=== PATIENT | female | born 1935 | race Caucasian/White ===

== ENCOUNTER → 2023-06-10 12:56 | Outpatient (REF) | payer MEDICARE, OTHER, SELFPAY | LOC: DHCBC MAIN 12:56 | PROVIDERS: ATTENDING PHYSICIAN Internal Medicine Cardiovascular Disease; FAMILY PHYSICIAN Family Medicine | DX: I47.9 Paroxysmal tachycardia, unspecified (principal); I10 Essential (primary) hypertension; I77.810 Thoracic aortic ectasia | CPT/HCPCS: 93306 ==

== ENCOUNTER → 2023-07-08 10:10 | Outpatient (REF) | payer MEDICARE, OTHER, SELFPAY | LOC: RCS 10:10 | PROVIDERS: ATTENDING PHYSICIAN Internal Medicine Cardiovascular Disease; FAMILY PHYSICIAN Family Medicine | DX: R00.2 Palpitations (principal) | CPT/HCPCS: 93225; 93226 ==

== ENCOUNTER → 2023-08-06 08:48 | Outpatient (REF) | payer MEDICARE, OTHER, SELFPAY ==
[2023-08-06 10:02] LABS: Ionized Calcium 1.13 mMOL/L (1.15-1.33)
[2023-08-06 10:19] LABS: % Basophils 0.3 % (0-2); % Eosinophils 3.4 % (0-6); % Immature Granulocytes 0.6 % (0-0.5); % Lymphocytes 24.1 % (20.5-51.1); % Monocytes 8.1 % (1.7-9.3); % Neutrophils 63.5 % (42.2-75.2); Absolute Eosinophils 0.3 10^3/uL (0-0.7); Absolute Immature Granulocytes 0.1 10^3/uL (0-0.05); Absolute Lymphocytes 1.9 10^3/uL (1.2-3.4); Absolute Monocytes 0.7 10^3/uL (0.1-0.6); Absolute Neutrophils 5.1 10^3/uL (1.4-6.5); Hemoglobin 13.2 g/dL (12.0-16.0); Mean Corpuscular Hgb 32.8 pg (27.0-31.0); Mean Corpuscular Volume 99.5 fL (81.0-99.0); Mean Platelet Volume 10.8 fL (7.4-10.4); Nucleated Red Blood Cells % 0 %; Platelet Count 222 10^3/uL (130-400); Red Blood Cell Count 4.02 10^6/uL (4.20-5.40); Red Cell Dist. Width 12.8 % (11.5-14.5)
[2023-08-06 12:35] LABS: Iron 120 ug/dl (37-170)
[2023-08-06 12:46] LABS: Percent Saturation 35 % (20-50); Total Iron Binding Capacity 338 ug/dl (265-497)
[2023-08-06 12:47] LABS: Creatine Phosphokinase 50 U/L (30-135)
[2023-08-06 13:23] LABS: Ferritin 62.5 ng/ml (11.1-264.0)
[2023-08-06 13:42] LABS: Vitamin B12 310 pg/ml (239-931)
[2023-08-07 09:49] LABS: Intact PTH 26.9 pg/ml (13.6-85.8)
[2023-08-07 11:49] LABS: Aldolase 4.2 U/L (1.2-7.6)
[2023-08-09 02:22] LABS: Albumin 3.61 g/dL (3.75-5.01); Alpha 1 Globulin 0.27 g/dL (0.19-0.46); Alpha 2 Globulin 0.82 g/dL (0.48-1.05); SPEP IFE Reflex IFE Done
== END ==
LOC: REG 08:48
PROVIDERS: ATTENDING PHYSICIAN Internal Medicine Hematology & Oncology; FAMILY PHYSICIAN Family Medicine; REFERRING PHYSICIAN Specialist
DX: R53.1 Weakness (principal); E21.3 Hyperparathyroidism, unspecified; C50.419 Malignant neoplasm of upper-outer quadrant of unspecified female breast; R11.2 Nausea with vomiting, unspecified; D70.9 Neutropenia, unspecified; C7A.00 Malignant carcinoid tumor of unspecified site; Z79.899 Other long term (current) drug therapy; R20.0 Anesthesia of skin
CPT/HCPCS: 36415; 82085; 82330; 82550; 82607; 82728; 82746; 83540; 83550; 83970; 84155; 84165; 85025; 86041

== ENCOUNTER → 2023-09-17 07:59 | Outpatient (REF) | payer MEDICARE, OTHER, SELFPAY ==
[2023-09-17 09:33] LABS: % Basophils 0.2 % (0-2); % Eosinophils 0.5 % (0-6); % Immature Granulocytes 0.8 % (0-0.5); % Lymphocytes 19.3 % (20.5-51.1); % Neutrophils 71.2 % (42.2-75.2); Absolute Eosinophils 0.1 10^3/uL (0-0.7); Absolute Immature Granulocytes 0.1 10^3/uL (0-0.05); Absolute Monocytes 0.8 10^3/uL (0.1-0.6); Absolute Neutrophils 7.3 10^3/uL (1.4-6.5); Hematocrit 37.8 % (37.0-47.0); Hemoglobin 12.7 g/dL (12.0-16.0); Mean Corp Hgb Conc. 33.6 g/dL (33.0-37.0); Mean Corpuscular Volume 95.2 fL (81.0-99.0); Mean Platelet Volume 10.5 fL (7.4-10.4); Nucleated Red Blood Cells % 0 %; Platelet Count 284 10^3/uL (130-400); Red Blood Cell Count 3.97 10^6/uL (4.20-5.40); Red Cell Dist. Width 12.4 % (11.5-14.5); White Blood Cell Count 10.3 10^3/uL (4.8-10.8)
[2023-09-17 10:33] LABS: ALT (SGPT) 20 U/L (0-35); AST (SGOT) 17 U/L (14-36); Albumin 3.7 g/dl (3.5-5.0); Alkaline Phosphatase 68 U/L (38-126); Blood Urea Nitrogen 25 mg/dl (7-17); Calcium 8.7 mg/dl (8.4-10.2); Carbon Dioxide 23 mmol/L (22-30); Chloride 107 mmol/L (98-107); Glucose 97 mg/dl (70-99); Potassium 4.1 mmol/L (3.5-5.1); Sodium 137 mmol/L (135-145); Total Bilirubin 0.6 mg/dl (0.2-1.3); Total CK 39 U/L (30-135); Total Protein 5.8 g/dl (6.3-8.2); eGFR > 60.00
[2023-09-17 10:35] LABS: C-Reactive Protein < 5.00 mg/L (0.0-10.00)
[2023-09-17 10:48] LABS: Erythrocyte Sed Rate 10 mm/hour (0-20)
[2023-09-17 11:05] LABS: TSH Reflex To Free T4 0.92 uIU/ml (0.47-4.68)
[2023-09-18 22:01] LABS: SSA 52 (Ro)(ENA) Ab, IgG 1 AU/mL (0-40); SSA 60 (Ro)(ENA) Ab, IgG 0 AU/mL (0-40); SSB (La)(ENA) Ab, IgG 0 AU/mL (0-40)
[2023-09-19 01:36] LABS: ANA, IgG Reflex to HEp-2 None Detected (None Detected)
[2023-09-19 15:58] LABS: Lyme Antibody Screen, EIA Negative (Negative); Rheumatoid Agglutinin Less Than 10 IU (<10 IU)
== END ==
LOC: REG 07:59
PROVIDERS: ATTENDING PHYSICIAN Family Medicine; FAMILY PHYSICIAN Family Medicine
DX: R53.83 Other fatigue (principal); G47.61 Periodic limb movement disorder; R06.00 Dyspnea, unspecified; E03.9 Hypothyroidism, unspecified; M79.10 Myalgia, unspecified site; M25.50 Pain in unspecified joint
CPT/HCPCS: 36415; 80053; 82550; 84443; 85025; 85652; 86038; 86140; 86235; 86430; 86618

== ENCOUNTER → 2023-10-16 13:03 | Outpatient (REF) | payer MEDICARE, OTHER, SELFPAY | LOC: RAD 13:03 | PROVIDERS: ATTENDING PHYSICIAN Family Medicine | DX: M54.2 Cervicalgia (principal); R20.2 Paresthesia of skin; M79.642 Pain in left hand | CPT/HCPCS: 72040; 73120 ==

== ENCOUNTER → 2023-10-24 13:55 | Outpatient (REF) | payer MEDICARE, OTHER, SELFPAY ==
[2023-10-24 15:45] LABS: Chloride 103 mmol/L (98-107)
[2023-10-24 15:47] LABS: ALT (SGPT) 30 U/L (0-35); AST (SGOT) 28 U/L (14-36); Albumin 3.8 g/dl (3.5-5.0); Alkaline Phosphatase 64 U/L (38-126); Blood Urea Nitrogen 30 mg/dl (7-17); Calcium 9.3 mg/dl (8.4-10.2); Carbon Dioxide 26 mmol/L (22-30); Glucose 116 mg/dl (70-99); Potassium 3.8 mmol/L (3.5-5.1); Sodium 137 mmol/L (135-145); Total Bilirubin 0.4 mg/dl (0.2-1.3); eGFR > 60.00
[2023-10-24 16:11] LABS: % Basophils 0.3 % (0-2); % Eosinophils 1.4 % (0-6); % Immature Granulocytes 0.4 % (0-0.5); % Lymphocytes 26.1 % (20.5-51.1); % Monocytes 8.8 % (1.7-9.3); Absolute Eosinophils 0.1 10^3/uL (0-0.7); Absolute Monocytes 0.7 10^3/uL (0.1-0.6); Absolute Neutrophils 4.9 10^3/uL (1.4-6.5); Hemoglobin 12.3 g/dL (12.0-16.0); Mean Corp Hgb Conc. 33.2 g/dL (33.0-37.0); Mean Corpuscular Hgb 32.2 pg (27.0-31.0); Mean Corpuscular Volume 96.9 fL (81.0-99.0); Mean Platelet Volume 10.6 fL (7.4-10.4); Nucleated Red Blood Cells % 0 %; Platelet Count 229 10^3/uL (130-400); Red Blood Cell Count 3.82 10^6/uL (4.20-5.40); Red Cell Dist. Width 12.6 % (11.5-14.5); White Blood Cell Count 7.8 10^3/uL (4.8-10.8)
== END ==
LOC: REG 13:55
PROVIDERS: ATTENDING PHYSICIAN Family Medicine
DX: R10.31 Right lower quadrant pain (principal); K57.00 Diverticulitis of small intestine with perforation and abscess without bleeding
CPT/HCPCS: 36415; 80053; 85025

== ENCOUNTER → 2023-10-28 11:44 | Outpatient (REF) | payer MEDICARE, OTHER, SELFPAY | LOC: RAD 11:44 | PROVIDERS: ATTENDING PHYSICIAN Family Medicine | DX: R10.31 Right lower quadrant pain (principal); K57.90 Diverticulosis of intestine, part unspecified, without perforation or abscess without bleeding | CPT/HCPCS: 74178; Q9967 ==

== ENCOUNTER → 2023-11-04 08:47 | Outpatient (REF) | payer MEDICARE, OTHER, SELFPAY ==
[2023-11-04 10:52] LABS: HDL Cholesterol 75 mg/dl; LDL Cholesterol, Calculated 101 mg/dl; Total Cholesterol 189 mg/dl (50-199); Triglyceride 66 mg/dl (10-149); Very Low Density Lipoprotein 13 mg/dl (0-30)
== END ==
LOC: REG 08:47
PROVIDERS: ATTENDING PHYSICIAN Family Medicine
DX: N94.89 Other specified conditions associated with female genital organs and menstrual cycle (principal); E78.00 Pure hypercholesterolemia, unspecified; R97.1 Elevated cancer antigen 125 [CA 125]
CPT/HCPCS: 36415; 80061; 86304

== ENCOUNTER → 2023-11-07 14:03 | Outpatient (REF) | payer MEDICARE, OTHER, SELFPAY | LOC: HWRAD 14:03 | PROVIDERS: ATTENDING PHYSICIAN Family Medicine | DX: N94.89 Other specified conditions associated with female genital organs and menstrual cycle (principal) | CPT/HCPCS: 76830; 76856 ==

== ENCOUNTER → 2024-01-13 14:49 | Outpatient (REF) | payer MEDICARE, OTHER, SELFPAY | LOC: WDC 14:49 | PROVIDERS: ATTENDING PHYSICIAN Family Medicine | DX: Z12.31 Encounter for screening mammogram for malignant neoplasm of breast (principal) | CPT/HCPCS: 77063; 77067 ==

== ENCOUNTER → 2024-01-16 08:48 | Outpatient (REF) | payer MEDICARE, OTHER, SELFPAY | LOC: RAD 08:48 | PROVIDERS: ATTENDING PHYSICIAN Family Medicine | DX: Z78.0 Asymptomatic menopausal state (principal) | CPT/HCPCS: 77080 ==

== ENCOUNTER → 2024-04-08 11:02 | Outpatient (REF) | payer MEDICARE, OTHER, SELFPAY | LOC: RAD 11:02 | PROVIDERS: ATTENDING PHYSICIAN Pain Medicine Interventional Pain Medicine; FAMILY PHYSICIAN Family Medicine | DX: Z01.818 Encounter for other preprocedural examination (principal) | CPT/HCPCS: 93005 ==

== ENCOUNTER → 2024-05-22 12:05 | Outpatient (REF) | payer MEDICARE, OTHER, SELFPAY ==
[2024-05-22 12:28] LABS: % Basophils 0.6 % (0-2); % Eosinophils 3.1 % (0-6); % Immature Granulocytes 0.6 % (0-0.5); % Lymphocytes 26.7 % (20.5-51.1); % Monocytes 9.2 % (1.7-9.3); % Neutrophils 59.8 % (42.2-75.2); Absolute Basophils 0.1 10^3/uL (0-0.2); Absolute Eosinophils 0.3 10^3/uL (0-0.7); Absolute Immature Granulocytes 0.1 10^3/uL (0-0.05); Absolute Lymphocytes 2.2 10^3/uL (1.2-3.4); Absolute Monocytes 0.8 10^3/uL (0.1-0.6); Absolute Neutrophils 4.9 10^3/uL (1.4-6.5); Hematocrit 38.3 % (37.0-47.0); Hemoglobin 12.6 g/dL (12.0-16.0); Mean Corp Hgb Conc. 32.9 g/dL (33.0-37.0); Mean Corpuscular Hgb 32.7 pg (27.0-31.0); Mean Corpuscular Volume 99.5 fL (81.0-99.0); Mean Platelet Volume 10.6 fL (7.4-10.4); Nucleated Red Blood Cells % 0 %; Platelet Count 233 10^3/uL (130-400); Red Blood Cell Count 3.85 10^6/uL (4.20-5.40); Red Cell Dist. Width 12.5 % (11.5-14.5); White Blood Cell Count 8.2 10^3/uL (4.8-10.8)
[2024-05-22 12:39] LABS: ALT (SGPT) 21 U/L (0-35); AST (SGOT) 19 U/L (14-36); Albumin 3.9 g/dl (3.5-5.0); Alkaline Phosphatase 67 U/L (38-126); Blood Urea Nitrogen 40 mg/dl (7-17); Calcium 8.9 mg/dl (8.4-10.2); Carbon Dioxide 27 mmol/L (22-30); Chloride 102 mmol/L (98-107); Glucose 88 mg/dl (70-99); HDL Cholesterol 77 mg/dl; Iron 124 ug/dl (37-170); LDL Cholesterol, Calculated 92 mg/dl; Sodium 137 mmol/L (135-145); Total Bilirubin 0.8 mg/dl (0.2-1.3); Total Cholesterol 180 mg/dl (50-199); Triglyceride 58 mg/dl (10-149); Very Low Density Lipoprotein 11 mg/dl (0-30); eGFR > 60.00
[2024-05-22 12:48] LABS: Percent Saturation 38 % (20-50); Total Iron Binding Capacity 325 ug/dl (265-497)
[2024-05-22 13:09] LABS: TSH Reflex To Free T4 0.82 uIU/ml (0.47-4.68)
[2024-05-22 13:14] LABS: Ferritin 50.1 ng/ml (11.1-264.0)
== END ==
LOC: OLABPV 12:05
PROVIDERS: ATTENDING PHYSICIAN Family Medicine
DX: E78.00 Pure hypercholesterolemia, unspecified (principal); I48.91 Unspecified atrial fibrillation; I25.10 Atherosclerotic heart disease of native coronary artery without angina pectoris; R53.1 Weakness; R53.83 Other fatigue; G47.33 Obstructive sleep apnea (adult) (pediatric); G47.61 Periodic limb movement disorder
CPT/HCPCS: 36415; 80053; 80061; 82728; 83540; 83550; 84443; 85025

== ENCOUNTER 2024-06-14 17:35 | Inpatient (IN) | payer MEDICARE, OTHER, SELFPAY ==
[2024-06-14] VITALS (13 sets, daily range): BP systolic 115–160; BP diastolic 72–103; PULSE 84; O2SAT 95
--- NOTE | 2024-06-14 11:13 | ED.GENMED ---
History of Present Illness
General
Chief Complaint: Dizziness
Source: patient and spouse
Exam Limitations: none
Time Seen by Provider: 06/14/24 10:48
Nursing documentation reviewed up to this point in time: agreed with
History of Present Illness
History of Present Illness:
Patient with history of paroxysmal atrial fibrillation on Eliquis, presents to ED secondary to sudden onset of dizziness, described as room sitting sensation, along with nausea and vomiting, upon waking up this morning. Patient reports mild
headache along her right side of the forehead, which has been chronic. Denies fever or chills. Denies blurred vision. Denies difficulty with speech. Denies loss of sensation or weakness. Denies recent illness. Denies recent change in
medications or diet. This morning when her symptoms started, patient was evaluated by nursing staff at her facility, where she was detected to have increased heart rate, with possible recurrent atrial fibrillation. Denies recent travel or surgery.
Past History
Past History
ED Past Medical History: Cancer (Breast cancer), GERD, HTN and Other (Hyperparathyroidism, headaches, dizziness)
ED Past Surgical History: Gynecological (Mastectomy.), Orthopedic and Other (Port placement; parathyroidectomy June 2018)
Social History
Tobacco: Non-smoker
Alcohol: None
Personal:
Living: with family
Employment: Retired
Family History
Family History: Other (Noncontributory)
Review of Systems
Review of Systems
Allergies reviewed?: Yes
All Other Systems: ROS reviewed and negative except as documented in HPI and ROS
Constitutional: Reports no symptoms
Respiratory: Reports no symptoms
Cardiac: Reports palpitations
ABD/GI: Reports nausea and vomiting
Musculoskeletal: Reports no symptoms
Skin: Reports no symptoms
Neurological: Reports dizzy and headache; Denies weakness
Phy Exam
Physical Exam
Physical Exam:
Physical Exam
General: no apparent distress, not acutely ill. afebrile.
Head: nc/at. horizontal nystagmus noted.
Neck: supple. no meningeal signs.
Heart: irregular, no murmur.
Lungs: no acute respiratory distress. clear bilaterally
Abdomen: normal bowel sounds. not tender.
Neuro: alert and oriented x 3. no focal neurological deficits
Skin: no rash
Psychiatric: well kept. interactive and cooperative
Extremities: no edema. no calf tenderness.
Course
Orders/Labs/Results
Orders:
Orders
06/14/24 Breakfast
Clear Liquid
At Your Request: Full Participation
Does patient need a safe tray?: No
06/14/24 10:39
Electrocardiogram (*1) Urgent
Reason for Study: Atrial Fibrillation
EKG- Treatment ONCE
06/14/24 11:12
0.9% Sodium Chloride 250 ml [Nss] 250 ml IV BOLUS
Diltiazem HCl [Cardizem] 10 mg IV NOW STA
06/14/24 11:19
Comprehensive Metabolic Panel Urgent
Magnesium Urgent
06/14/24 11:20
Complete Blood Count/No Diff Urgent
TSH Urgent
06/14/24 12:02
Electrocardiogram (*1) Urgent
Reason for Study: Atrial Fibrillation
EKG- Treatment ONCE
06/14/24 13:00
Diltiazem 125 mg/125 ml Nss [Cardizem] 125 mg in 125 ml IV PER PROTOCOL
Initial dose in mg/hr, then titrate:: 5
Titrate to keep:: Heart rate 80-100 bpm
Titrate by mg/hr:: 5 mg/hr
Frequency of titrations (minutes):: 15
Maximum dose in mg/hr:: 15
06/14/24 13:35
Physical Therapy Consult [Pt Eval And Treat] Urgent
Activity Level: Ambulate
06/14/24 14:36
Meclizine [Antivert] 25 mg PO NOW STA
06/14/24 14:51
Ondansetron Injectable [Zofran] 4 mg .ROUTE .STK-MED ONE
06/14/24 14:52
Ondansetron Injectable [Zofran] 4 mg IV NOW STA
06/14/24 15:36
Prochlorperazine [Compazine] 10 mg IV NOW STA
06/14/24 15:53
diazePAM [Valium Injection] 2 mg IV NOW STA
06/14/24 16:00
diazePAM [Valium Injection] 2 mg IV NOW STA
06/14/24 16:10
Admit/Transfer Patient As Directed
Co-Sign Provider:
Level of Care: Inpatient admission
Assign to:: Telemetry
Physician / Group: Catie
Diagnosis: BPPV, Afib
Reason for Telemetry: Arrhythmia
Date to Stop Telemetry: 06/17/24
Time to Stop Telemetry: 11:00
Reason for Hospitalization: vertigo
Expected length of stay greater than two midnights?: Yes
ELOS- Estimated Length of Stay in days: 3
I certify the patient meets the requirements for IP care: Yes
06/14/24 16:11
PRN Pain Medication Management As Directed
May give lesser potent ordered pain med per pt: Yes
preference::
Protocol:: Medication orders for pain may be administered in a
manner that supports deferring to patient preference
when the pt is:
- Requesting an ordered lesser potent pain medication.
Least to most potent pain medications are defined
as: acetaminophen < NSAID < tramadol < opioids
(morphine, oxycodone, hydromorphone).
- Requesting a lesser dose of the same medication IF
ORDERED.
- Requesting a less intrusive route of administration
if both routes are prescribed by the provider (PO <
IV).
06/14/24 16:14
Code Status As Directed
Resuscitation Status: Full Code
06/14/24 16:35
Potassium Chloride [KCl] 20 meq 0.9% Sodium Chloride 150 ml [Nss] 150 ml IV NOW
06/14/24 17:09
Verapamil Extended Release [Calan Extended Release] 180 mg PO NOW STA
06/14/24 17:53
Acetaminophen [Tylenol] 650 mg PO Q4HPRN PRN
Ondansetron Injectable [Zofran] 4 mg IV Q6HPRN PRN
06/14/24 17:53
CARDIOLOGY CONSULT Routine
Consulting Provider: Mónica Medrano
Was physician already notified: Yes
Activity As Directed
Activity Level: Out of Bed- Chair
Advance Diet as Tolerated As Directed
Goal Diet: Sodium, 2 Gram
Sequential Compression Device [Pneumatic Compression Sleeves] As Directed
Type: Knee high
Vital Signs As Directed
Frequency: Per unit guidelines
Ot Eval And Treat Routine
Pt Eval And Treat Routine
Activity Level: As Tolerated
DX Deep Vein Thrombosis Video Routine
06/14/24 18:00
Losartan [Cozaar] 50 mg PO QPM
Ropinirole [Requip] 0.25 mg PO DAILYPRN PRN
06/14/24 20:00
Apixaban [Eliquis] 5 mg PO BID
Famotidine [Pepcid] 40 mg PO BID
06/14/24 22:00
Meclizine [Antivert] 25 mg PO Q8HPRN PRN
Ropinirole [Requip] 0.5 mg PO HS
diazePAM [Valium Injection] 2 mg IV Q6HPRN PRN
06/15/24 Breakfast
NPO
Allow oral meds: Yes
Allow clear liquids: 4hrs prior to procedure
Comment: may have unrestricted clear liquid up to 4 hrs prior to scheduled procedure
Basic Metabolic Panel IN AM
Complete Blood Count/No Diff IN AM
Levothyroxine [Synthroid] 88 mcg PO DAILY@0600
06/15/24 08:00
Bupropion(12Hr)Sustain Release [WELLBUTRIN SR (12 hour sustained release)] 150 mg PO DAILY
Gabapentin [Neurontin] 100 mg PO DAILY
Verapamil Extended Release [Calan Extended Release] 180 mg PO BID
magnesium oxide 200 mg PO DAILY
06/17/24 11:00
DC Protocol for Telemetry ONCE
Abnormal Lab Results
06/14/24 06/14/24
11:19 11:20
RBC 3.84 L 10^6/uL
(4.20-5.40)
MCH 32.8 H pg
(27.0-31.0)
Chloride 108 H mmol/L
(98-107)
BUN 24 H mg/dl
(7-17)
Glucose 117 H mg/dl
(70-99)
Total Protein 6.1 L g/dl
(6.3-8.2)
06/14/24 11:20
06/14/24 11:19
Vital Signs
Initial and Last Documented VS:
Initial Vital Signs
Temp Pulse Resp BP Pulse Ox
97.8 F 64 16 121/82 98
06/14/24 10:27 06/14/24 10:27 06/14/24 10:27 06/14/24 10:27 06/14/24 10:27
Last Documented Vital Signs
Temp Pulse Resp BP Pulse Ox
98.2 F 102 16 160/83 96
06/14/24 18:06 06/14/24 18:12 06/14/24 18:06 06/14/24 18:12 06/14/24 18:06
MDM/Problems Addressed
MDM/Problems Addressed:
Patient evaluated by physical therapy -symptoms consistent with likely vertigo. However, as patient remains quite symptomatic, patient will be admitted for further evaluation and treatment. In addition, patient is presenting with atrial
fibrillation, and is currently on diltiazem infusion. Perhaps intermittent episodes of atrial fibrillation may be reason for her 'fatigue' over the past 1 year. As such, patient may benefit also from cardiology consultation, for potential
cardioversion as inpatient.
*Critical Care Note
Total Time (30-74mins, 75-104mins- exclusive of procedures): Not Applicable
ED Attending Note
-
Portions of this chart may have been created with voice recognition software.� Occasional wrong word or��sound alike� substitutions may have occurred due to the inherent limitations of voice recognition software.
Discharge Plan
Departure
Patient Disposition: Admit
Date of Disposition: 06/14/24
Time of Disposition: 15:12
Admit to: Telemetry
Presentation/result/management discussed w/ accepting MD/DO: Hospitalist
Discharge Problem:
Vertigo, Atrial fibrillation
Interventions
Interventions:
*Risk Screen - Suicide Last Done: 06/14/24 10:37
*General Assessment Last Done: 06/14/24 10:37
*Neglect/Abuse Screening Last Done: 06/14/24 10:37
*ED- Fall Risk Assessment Last Done: 06/14/24 11:20
*ED COVID-19 Vaccine History Last Done: 06/14/24 11:20
*Nursing Disposition Last Done: 06/14/24 17:54
ED- Neurological Assessment Last Done: 06/14/24 11:22
ED- Cardiac Assessment Last Done: 06/14/24 11:22
ED Swallowing Screen Last Done: 06/14/24 11:22
Discharge Date and Time
Discharge Date/Time: 06/14/24 17:55
[2024-06-14] MEDS: NSS 250 IV (11:24)
[2024-06-14] MEDS: CARDIZEM 10 MG IV (11:26)
[2024-06-14 11:34] LABS: Hematocrit 37.7 % (37.0-47.0); Hemoglobin 12.6 g/dL (12.0-16.0); Mean Corp Hgb Conc. 33.4 g/dL (33.0-37.0); Mean Corpuscular Hgb 32.8 pg (27.0-31.0); Mean Corpuscular Volume 98.2 fL (81.0-99.0); Mean Platelet Volume 10.2 fL (7.4-10.4); Platelet Count 221 10^3/uL (130-400); Red Blood Cell Count 3.84 10^6/uL (4.20-5.40); Red Cell Dist. Width 12.3 % (11.5-14.5); White Blood Cell Count 7.6 10^3/uL (4.8-10.8)
[2024-06-14 11:54] LABS: ALT (SGPT) 24 U/L (0-35); AST (SGOT) 22 U/L (14-36); Alkaline Phosphatase 64 U/L (38-126); Blood Urea Nitrogen 24 mg/dl (7-17); Calcium 9.1 mg/dl (8.4-10.2); Carbon Dioxide 25 mmol/L (22-30); Chloride 108 mmol/L (98-107); Glucose 117 mg/dl (70-99); Potassium 3.8 mmol/L (3.5-5.1); Sodium 140 mmol/L (135-145); Total Bilirubin 0.6 mg/dl (0.2-1.3); Total Protein 6.1 g/dl (6.3-8.2); eGFR > 60.00
[2024-06-14 12:27] LABS: TSH 1.89 uIU/ml (0.47-4.68)
[2024-06-14] MEDS: CARDIZEM 125 IV (13:08)
[2024-06-14] MEDS: ANTIVERT 25 MG PO (14:50)
[2024-06-14] MEDS: ZOFRAN 4 MG IV (14:52)
--- NOTE | 2024-06-14 15:37 | HPS.HSE ---
Family Physician
-
Family Physician: Sonal Grimm MD
Chief Complaint
-
Dizziness and Vomiting
History of Present Illness
Patient is an 88 y/o female past medical history of A-Fib, Hypertension, Hyperlipidemia, Hypothyroidism and Restless Leg Syndrome who presents dizziness. Patient reports this morning she awoke feeling very dizzy which she describes as a spinning
sensation. She reports associated nausea, and vomiting. She reports a similar episode about 2 months ago which was not as severe and resolved fairly quickly. Due the severity of the symptoms she came to the ER where she was also found to be in
atrial fibrillation. Patient has a prior history of atrial fibrillation, but note episodes are usually very short, and she is not aware of any episode that have last this long. She denies any fevers, sweats or chills.
Medical History
Past Medical History
Past Medical History: Reports Other
Additional Past Medical History:
Paroxysmal Atrial Fibrillation
SVT / V-Tach s/p Ablation
Essential Hypertension
Hypothyroidism
Anxiety
Restless Leg Syndrome
GERD
Osteoarthritis
Breast Cancer
Past Surgical History: Reports Other
Additional Past Surgical History:
Right Shoulder Arthroscopy
Left Carpal Tunnel
Bilateral Knee Replacements
Parathyroid Surgery
Right Breast Lumpectomy
Right Inguinal Hernia Repair
Social History
Tobacco: Former Smoker (Quit over 40 years ago)
Living: Other ([facility])
Family History
Family History: Not pertinent
Allergies / Home Medications
Allergies reflects when Allergies were last updated in [facility].
Home Medications with original date entered in [facility]
Allergy/Medication List:
Allergies
Allergy/AdvReac Type Severity Reaction Status Date / Time
cefazolin Allergy Hives Verified 12/19/22 11:20
levofloxacin [From Levaquin] Allergy pain in Verified 12/19/22 11:20
all my
joints and
body
metoprolol Allergy Anxiety Verified 12/19/22 11:20
Penicillins Allergy Pharmacy Verified 12/19/22 11:20
to Review
prednisone [Prednisone] Allergy ANXIETY Verified 12/19/22 11:20
Anesthesia S/I-40 Allergy Unknown Uncoded 06/14/24 10:26
Home Medications
coenzyme Q10 100 mg capsule (CoQ-10) 100 mg PO DAILY Supplement 03/05/14
calcium 600 mg (as carbonate)-vit D3 20 mcg (800 unit) chewable tablet (Caltrate plus D) 1 tab PO DAILY Supplement 09/06/20
bupropion HCl 150 mg tablet,12 hr sustained-release (Wellbutrin SR) 150 mg PO DAILY 04/17/21
acetaminophen 500 mg tablet 1,000 mg PO DAILYPRN PRN mild pain 06/14/24
apixaban 5 mg tablet (Eliquis) 5 mg PO BID 06/14/24
ascorbic acid (vitamin C) 500 mg tablet (Vitamin C) 500 mg PO DAILY 06/14/24
cholecalciferol (vitamin D3) 50 mcg (2,000 unit) tablet (Vitamin D3) 50 mcg PO DAILY 06/14/24
famotidine 20 mg tablet (Pepcid AC) 40 mg PO BID 06/14/24
gabapentin 100 mg capsule 100 mg PO DAILY 06/14/24
levothyroxine 88 mcg tablet 88 mcg PO DAILY 06/14/24
losartan 50 mg tablet 50 mg PO QPM 06/14/24
magnesium oxide 200 mg PO DAILY 06/14/24
omega 1-uce-sid-fish oil 1,000 mg (120 mg-180 mg) capsule (Fish Oil) 1 cap PO DAILY 06/14/24
polyethylene glycol 3350 17 gram oral powder packet 17 g PO DAILY 06/14/24
polyvinyl alcohol 1.4 % eye drops (Artificial Tears (polyvinyl alcohol)) 1 drp ophthalmic (eye) DAILYPRN PRN dry eyes 06/14/24
psyllium 1 packet PO DAILY 06/14/24
ropinirole 0.5 mg tablet 0.75 mg PO HSPRN PRN insomnia 06/14/24
therapeutic multivitamin 1 tab PO DAILY 06/14/24
tramadol 50 mg tablet 50 mg PO DAILYPRN PRN moderate pain 06/14/24
verapamil 180 mg tablet,extended release 180 mg PO BID 06/14/24
Review of Systems
-
A 12 point ROS was completed and negative except as noted: Yes
Constitutional: Denies Fever
Respiratory: Denies Cough or Trouble Breathing
Cardiac: Denies Chest Pain or Palpitations
Physical Exam
Vital Signs
Vital Signs
Temp Pulse Resp BP Pulse Ox
97.8 F 90 16 133/84 94
06/14/24 10:27 06/14/24 14:45 06/14/24 14:45 06/14/24 14:13 06/14/24 14:45
Physical Exam
General: Well Developed, Well Nourished, Conversant and Other (Mild distress due to intermittent waves of nausea)
HEENT: Anicteric, Moist mucous membranes, PERRLA and Other (Horizontal Nysagmus)
Respiratory: Clear and Non Labored Respirations
Cardiac: S1/S2 and Irregular Rhythm; No Tachycardia
GI: Soft and Non Tender
Rectal: Deferred by Provider
Musculoskeletal: No Clubbing and No Cyanosis
Skin: Warm and Dry
Neuro: Awake, Alert, Oriented and Nonfocal/grossly intact
Psych: Calm
Laboratory Results
-
06/14/24 11:20
06/14/24 11:19
Laboratory Results
Total Bilirubin 0.6 mg/dl (0.2-1.3) 06/14/24 11:19
AST 22 U/L (14-36) 06/14/24 11:19
ALT 24 U/L (0-35) 06/14/24 11:19
Alkaline Phosphatase 64 U/L (38-126) 06/14/24 11:19
Data Reviewed
-
Lab Data: Labs Reviewed by me
Impression/Plan
-
Vertigo, likely BPPV
-Patient with positive Harry-Hallpike on the right
-Continue PT/OT for vestibular therapy
-Patient still with significant symptoms despite meclizine given in ED - Will give dose of Valium now
-Continue meclizine prn moderate/severe symptoms - Continue Valium for intractable vertigo
Paroxysmal Atrial Fibrillation
-Patient started on diltiazem drip in ED but rate is now controlled - Will give her usual dose of verapamil now and plan to stop diltiazem drip
-Continue verapamil
-Continue Eliquis
-Consult Cardiology
-NPO after midnight for possible cardioversion if patient remains in a-fib
Essential Hypertension
-Continue Cozaar with hold parameters
Hypothyroidism
-Continue Levothyroxine
Anxiety
-Continue Wellbutrin
Restless Leg Syndrome
-Continue Requip
GERD
-Continue Pepcid
Hx Breast Cancer s/p Right Lumpectomy
DVT proph: Eliquis
Code Status: Full Code
[2024-06-14] MEDS: COMPAZINE 10 MG IV (15:40)
[2024-06-14] MEDS: VALIUM INJECTION 2 MG IV (16:21)
--- NOTE | 2024-06-14 16:29 | W.PN.UPDATE ---
Update Note
Progress Note Update
This is an addendum to H&P written by MONICA Bolden
I saw and examined the patient.
The MAIL HANDLER ASSISTANT's note was reviewed and I agree with the note.
Comment:
Ms. Nimo Dubose is a 88 yo woman with hx atrial fibrillation on Eliquis, breast CA, GERD, HTN presents to the ER with sudden onset of dizziness, nausea and vomiting upon waking this morning. She was found to have elevated heart rate by
nursing staff this morning.
Triage VS: T 97.8, P 64, RR 16, BP 121/82, SpO2 98%
On exam patient is somnolent, THU, EOMI, mild nystagmus. no focal neurological deficits. CV: irregular rhythm, lungs clear. No LE swelling.
LABS: WBC 7.6, Hg 12.6, PLT 221, Na 140, K+ 3.8, Cl 108, Mag 2.0, Glucose 117, T. Bili 0.6, AST 22, ALT 24, Alk Phos 64
TSH 1.89
EKG: afib @ 100
BPPV
-seen by PT with positive Harry-Hallpike
-s/p Meclizine, Compazine and Valium in the ER
-admit to telemetry
-continue Vestibular PT and symptomatic control
Paroxysmal Atrial Fibrillation
-started on an IV Diltiazem gtt in the ER, down to 5
-can resume home Verapamil and stop Diltiazem gtt
-awaiting med rec
-Cardiology consulted
Remainder of plan per MAIL HANDLER ASSISTANT note
[2024-06-14] MEDS: CALAN EXTENDED RELEASE 180 MG PO (18:12)
--- NOTE | 2024-06-14 19:30 | PTCARENOTE ---
pt arrived to unit at 1806 via stretcher from ED, at the bedside. Cardizem gtt running. stat Cardizem ordered for 1700 not given. gtt stopped and PO given, see MAY. BP elevated, other VSS. pt pulled over to bed. Purwick removed pt is
continent x2. pt ambulated from bed to bathroom with an assist x1. pt diet ordered, received dinner. afib on tele #4. pt and updated at the bedside about plan of care by this nurse. assessment completed by this nurse. no signs of skin
breakdown. 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
[2024-06-14] MEDS: COZAAR 50 MG PO (20:12)
[2024-06-14] MEDS: PEPCID 20 MG PO (20:14)
[2024-06-14] MEDS: ELIQUIS 5 MG PO (20:14)
[2024-06-14] MEDS: KCL 160 MEQ IV (21:36)
[2024-06-14] MEDS: REQUIP 0.5 MG PO (21:37)
[2024-06-15] VITALS (8 sets, daily range): BP systolic 111–157; BP diastolic 61–93; PULSE 86–95; O2SAT 95
--- NOTE | 2024-06-15 02:45 | PTCARENOTE ---
Patient educated by this RN multiple times about the importance of utilizing call nagel before ambulating due to complaints of dizziness. Patient continuing to get out of bed without hitting call light. Bed alarm placed. Patient also educated on
importance of wearing cardiac monitor technician. Patient continuing to take leads off. This RN continues to reinforce education and put leads back on. Care ongoing.
[2024-06-15 04:45] LABS: Urine Albumin Negative (Neg - Trace); Urine Bilirubin Negative (Negative); Urine Character Clear (Clear); Urine Color Yellow; Urine Glucose Negative (Negative); Urine Ketone Negative (Negative); Urine Leukocyte Negative (Negative); Urine Nitrite Negative (Negative); Urine Occult Blood Negative (Negative); Urine Specific Gravity 1.005 (<1.030); Urine Urobilinogen Negative (Neg - 1+)
[2024-06-15] MEDS: SYNTHROID 88 MCG PO (05:25)
[2024-06-15 06:55] LABS: Hematocrit 38.1 % (37.0-47.0); Hemoglobin 12.6 g/dL (12.0-16.0); Mean Corp Hgb Conc. 33.1 g/dL (33.0-37.0); Mean Corpuscular Volume 99.7 fL (81.0-99.0); Mean Platelet Volume 9.9 fL (7.4-10.4); Platelet Count 218 10^3/uL (130-400); Red Blood Cell Count 3.82 10^6/uL (4.20-5.40); Red Cell Dist. Width 12.2 % (11.5-14.5); White Blood Cell Count 7.4 10^3/uL (4.8-10.8)
[2024-06-15 07:21] LABS: Blood Urea Nitrogen 15 mg/dl (7-17); Calcium 9.3 mg/dl (8.4-10.2); Carbon Dioxide 25 mmol/L (22-30); Chloride 110 mmol/L (98-107); Estimated Creatinine Clearance 54 ml/min; Glucose 101 mg/dl (70-99); Potassium 4.1 mmol/L (3.5-5.1); Sodium 142 mmol/L (135-145); eGFR > 60.00
[2024-06-15] MEDS: CALAN EXTENDED RELEASE 180 MG PO ×2 (07:37→20:16)
[2024-06-15] MEDS: ELIQUIS 5 MG PO ×2 (07:37→20:16)
[2024-06-15] MEDS: NEURONTIN 100 MG PO (07:37)
[2024-06-15] MEDS: WELLBUTRIN SR (12 hour sustained release) 150 MG PO (07:37)
[2024-06-15] MEDS: MAG-TAB SR 84 MG PO (07:37)
[2024-06-15] MEDS: PEPCID 20 MG PO ×2 (07:37→20:17)
--- NOTE | 2024-06-15 09:23 | CON.CAR ---
Addendum entered and electronically signed by Wayne Munoz MD 06/15/24 14:53:
88 yo female with PMH of paroxysmal A fib on eliquis was admitted with dizziness and A fib with RVR. There seems to be a component of vertigo, and she is being treated for this as well. She is now back in sinus after a diltiazem drip. She feels
weak overall. Exam with RRR, II/ systolic murmur at RUSB, no edema. Tele: SR 80s.
Paroxysmal A fib. Now back in sinus, and on home regimen of verapamil 180mg bid. We discussed options for A fib. She did not tolerate metoprolol in the past. She has taken propranolol for anxiety. We add propranolol 10mg bid.
Check echo.
Vertigo: per primary team.
Original Note:
Consultation
Consultation Request
Date/Time Consultation Requested: 06/14/24 138
Date/Time Consultation Performed: 06/15/24 79
Requesting Provider: Nancy ANDERSON
Performing Provider: Marimar CROWDER for Dr. Munoz
Reason for Consultation: AFIB
Medical History
-
Chief Complaint: dizziness
History of Present Illness:
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
breast cancer/chemo who is here for evaluation of dizziness (felt like she was moving) with associated nausea and vomiting. In ER, seen to be in AFIB with RVR and briefly was on dilt drip, but has been back in SR. She is still feeling dizzy. She is
diagnosed with vertigo and treated with meclizine, Compazine, and Valium. Vestibular therapy planned. She is OOB to chair and in no distress at the time of my assessment.
Past Medical History
Past Medical History: Arrhythmias, CVA, HTN and Other (as above)
Social History
Personal:
Family History
Family History: Reviewed & Not Pertinent
Allergies / Home Medications
Allergy/AdvReac Type Severity Reaction Status Date / Time
cefazolin Allergy Hives Verified 12/19/22 11:20
levofloxacin [From Levaquin] Allergy pain in Verified 12/19/22 11:20
all my
joints and
body
metoprolol Allergy Anxiety Verified 12/19/22 11:20
Penicillins Allergy Pharmacy Verified 12/19/22 11:20
to Review
prednisone [Prednisone] Allergy ANXIETY Verified 12/19/22 11:20
Anesthesia S/I-40 Allergy Unknown Uncoded 06/14/24 10:26
�Medication �Instructions �Recorded �Confirmed �Type
coenzyme Q10 100 mg capsule 100 mg PO DAILY Supplement 03/05/14 06/14/24 History
(CoQ-10)
calcium 600 mg (as carbonate)-vit 1 tab PO DAILY Supplement 09/06/20 06/14/24 History
D3 20 mcg (800 unit) chewable
tablet (Caltrate plus D)
bupropion HCl 150 mg tablet,12 hr 150 mg PO DAILY 04/17/21 06/14/24 History
sustained-release (Wellbutrin SR)
acetaminophen 500 mg tablet 1,000 mg PO DAILYPRN PRN mild pain 06/14/24 06/14/24 History
apixaban 5 mg tablet (Eliquis) 5 mg PO BID 06/14/24 06/14/24 History
ascorbic acid (vitamin C) 500 mg 500 mg PO DAILY 06/14/24 06/14/24 History
tablet (Vitamin C)
cholecalciferol (vitamin D3) 50 50 mcg PO DAILY 06/14/24 06/14/24 History
mcg (2,000 unit) tablet (Vitamin
D3)
famotidine 20 mg tablet (Pepcid AC) 40 mg PO BID 06/14/24 06/14/24 History
gabapentin 100 mg capsule 100 mg PO DAILY 06/14/24 06/14/24 History
levothyroxine 88 mcg tablet 88 mcg PO DAILY 06/14/24 06/14/24 History
losartan 50 mg tablet 50 mg PO QPM 06/14/24 06/14/24 History
magnesium oxide 200 mg PO DAILY 06/14/24 06/14/24 History
omega 3-hkc-zhn-fish oil 1,000 mg 1 cap PO DAILY 06/14/24 06/14/24 History
(120 mg-180 mg) capsule (Fish Oil)
polyethylene glycol 3350 17 gram 17 g PO DAILY 06/14/24 06/14/24 History
oral powder packet
polyvinyl alcohol 1.4 % eye drops 1 drp ophthalmic (eye) DAILYPRN 06/14/24 06/14/24 History
(Artificial Tears (polyvinyl PRN dry eyes
alcohol))
psyllium 1 packet PO DAILY 06/14/24 06/14/24 History
ropinirole 0.5 mg tablet 0.75 mg PO HSPRN PRN insomnia 06/14/24 06/14/24 History
therapeutic multivitamin 1 tab PO DAILY 06/14/24 06/14/24 History
tramadol 50 mg tablet 50 mg PO DAILYPRN PRN moderate pain 06/14/24 06/14/24 History
verapamil 180 mg tablet,extended 180 mg PO BID 06/14/24 06/14/24 History
release
Review of Systems
-
History Source: Patient
All other systems: Negative unless noted
Abdomen/GI: Nausea and Vomiting
Neurological: Dizzy
Physical Exam
Vital Signs
Temp Pulse Resp BP Pulse Ox
97.8 F 90 16 157/82 97
06/15/24 07:41 06/15/24 07:41 06/15/24 07:41 06/15/24 07:41 06/15/24 07:41
Lab Results
06/15/24 06:39
06/15/24 06:39
Physical Exam
General: Well Developed, Well Nourished and No Apparent Distress
HEENT: Normocephalic and Anicteric
Respiratory: Clear and Non Labored Respirations
Cardiac: Regular Rhythm
Skin: Warm and Dry
Neuro: AO x 3
Psych: Calm
Impression / Plan
-
Dizziness/N/V, vertigo:
-on meds and getting therapy
-management per primary team
PAF:
-now in SR
-continue verapamil. She has taken low dose propranolol before for anxiety PRN. We will add it back scheduled dosing for her breakthrough Afib with RVR.
-continue Eliquis for OAC
-update echo
HTN:
-continue BB and monitor with addition of BB
Hx SVT/VT:
-stable and dates back to 1995
-continue CCB
Data Reviewed
-
EKG: Tracing Personally Visualized and interpreted (AFIB 89 BPM)
Medical Tests (Nuc Med, Echo etc): Report Reviewed by me (Echo 06/10/23: 1. Mild LVH with EF 60-65% 2. Bi-atrial enlargement 3. MAC/mild MR 4. Aortic sclerosis without stenosis 5. Mildly dilated aortic root (42mm))
Labs: Labs Reviewed by me
--- NOTE | 2024-06-15 10:30 | CM ---
Addendum entered by Sneha Balderrama 06/15/24 12:22:
PT/OT rec SNF
Options reviewed - prefer [facility] - referral placed in [facility]
no pre-auth needed
PLAN: [facility]
Original Note:
Patient seen at bedside with
IA completed
Lives with in 1 story home, 1 step to ener
PLOF: Independent, no device
DME: Rollator, electric scooter, walker
Has had [facility] in past, denies rehab
PT/OT to eval
PCP: Sonal Grimm
Pharmacy: [facility], [place]
PLAN: Await PT/OT eval, continue to follow for any needs
--- NOTE | 2024-06-15 10:47 | W.PN.HOSP.TC ---
Today's Communication/Plan
-
MRI brain w/wo contrast
continue prn supportive care for vertigo
Echo
monitor tele
ongoing PT/OT
Assessment / Plan
Assessment / Plan
Assessment:
BPPV
- ER eval with PT revealed + Harry-Hallpike
- continue prn Meclizine, Compazine and Valium
- orthostatics negative
- check MRI brain
Chronic shuffling gait
- check MRI
- OP Neurology ongoing follow up with established Neurologist Dr. Brown
Paroxysmal Atrial Fibrillation
- s/p IV Cardizem drip
- now back on Verapamil and low dose Propranolol started
- continue Eliquis
- check Echo
- Cards consulted
Essential Hypertension
- Continue Cozaar with hold parameters
Hypothyroidism
- Continue Levothyroxine
Anxiety
- Continue Wellbutrin
Restless Leg Syndrome
- Continue Requip
GERD
- Continue Pepcid
Hx Breast Cancer s/p Right Lumpectomy
DVT ppx: Eliquis
Code: Full
Anticipated Discharge: > 48 hours
Subjective/Interval History
-
Date of Service: June 15, 2024
less dizziness, no headache, vision changes
Objective Data
-
Labs:
Laboratory Results
06/15/24
06:39
WBC 7.4
Hgb 12.6
Hct 38.1
Plt Count 218
Sodium 142
Potassium 4.1
Chloride 110 H
Carbon Dioxide 25
BUN 15
Creatinine 0.7
Glucose 101 H
Calcium 9.3
Vital Signs:
Vital Signs
Temp Pulse Resp BP Pulse Ox
97.8 F 90 16 157/82 97
06/15/24 07:41 06/15/24 07:41 06/15/24 07:41 06/15/24 07:41 06/15/24 07:41
Physical Exam
-
General: No Apparent Distress
HEENT: Normocephalic and Atraumatic
Respiratory: Negative Wheezes
Cardiac: Regular Rhythm and S1/S2
GI: Soft and Nontender
Genito-urinary: No Costovertebral Tender
Neuro: AO x 3
Psych: Calm
Data Reviewed
-
Total Time Spent with Patient (in minutes): 42
Labs: Labs Reviewed by me
[2024-06-15] MEDS: INDERAL 10 MG PO ×2 (12:01→20:17)
[2024-06-15] MEDS: COZAAR 50 MG PO (17:17)
[2024-06-15] MEDS: REQUIP 0.5 MG PO (21:11)
--- NOTE | 2024-06-15 22:14 | W.PN.UPDATE ---
Update Note
Progress Note Update
RN reports patient agitated, getting aggressive with staff, RN reports patient was with minimal confusion and agitation last night as well, and calm during day with at bedside. Patient was on phone with the , then started getting out
of bed constantly demanding staff to let her go and not to keep her here against her will.
Patient seen and evaluated, patient resting in bed at present, Ox2 name and , voiding okay, denies any pain, trying to call as she thinks he may be mad at her for yelling at him before. Helped patient make the call, since he didn't pick
assured patient that is sleeping therefore she decided to rest now. will order melatonin.
--- NOTE | 2024-06-15 22:35 | PTCARENOTE ---
Patient getting agitated and constantly setting off bed alarm. Patient wandering around unit stating that she was looking for her and that she was being held against her will in the hospital. Patient then began getting verbally aggressive
with staff. VEL Sheridan messaged. Medication orders placed. Refer to MAR. Plan of care ongoing.
[2024-06-15] MEDS: MELATONIN 5 MG PO (22:41)
[2024-06-16] MEDS: SYNTHROID 88 MCG PO (06:17)
[2024-06-16 06:22] VITALS: BP 144/79
[2024-06-16 06:59] LABS: Hematocrit 38.3 % (37.0-47.0); Hemoglobin 12.9 g/dL (12.0-16.0); Mean Corp Hgb Conc. 33.7 g/dL (33.0-37.0); Mean Corpuscular Hgb 32.9 pg (27.0-31.0); Mean Corpuscular Volume 97.7 fL (81.0-99.0); Platelet Count 231 10^3/uL (130-400); Red Blood Cell Count 3.92 10^6/uL (4.20-5.40); Red Cell Dist. Width 12.3 % (11.5-14.5); White Blood Cell Count 7.4 10^3/uL (4.8-10.8)
[2024-06-16 07:24] VITALS: BP 156/89
[2024-06-16] MEDS: CALAN EXTENDED RELEASE 180 MG PO ×2 (07:33→19:31)
[2024-06-16] MEDS: NEURONTIN 100 MG PO (07:33)
[2024-06-16] MEDS: WELLBUTRIN SR (12 hour sustained release) 150 MG PO (07:33)
[2024-06-16] MEDS: PEPCID 20 MG PO ×2 (07:33→19:30)
[2024-06-16] MEDS: INDERAL 10 MG PO ×2 (07:34→19:32)
[2024-06-16] MEDS: ELIQUIS 5 MG PO ×2 (07:34→19:30)
[2024-06-16] MEDS: MAG-TAB SR 84 MG PO (07:34)
[2024-06-16 08:07] LABS: Blood Urea Nitrogen 26 mg/dl (7-17); Carbon Dioxide 26 mmol/L (22-30); Chloride 108 mmol/L (98-107); Estimated Creatinine Clearance 47 ml/min; Glucose 93 mg/dl (70-99); Potassium 4.1 mmol/L (3.5-5.1); Sodium 142 mmol/L (135-145); eGFR > 60.00
--- NOTE | 2024-06-16 09:55 | W.PN.CD ---
Today's Communication / Plan
-
continue current medications
no additional recommendations at this time
I will sign off
Impression / Plan
-
Dizziness/N/V, vertigo:
-on meds and getting therapy
-management per primary team
PAF:
-now in SR
-continue verapamil.
-Added back scheduled dosing of propranolol which she has tolerated in the past.
-continue Eliquis for OAC
HTN:
-continue BB and monitor with addition of BB
Hx SVT/VT:
-stable and dates back to 1995
-continue CCB
Subjective:
lethargic didn't sleep last night, no complaints, at the bedside
Data:
TTE; 06/15/24:
LVEF 55-60%, mild , Mild MS
MRI Brain 06/15/24: No evidence of acute intracranial abnormality.
Moderate diffuse atrophy. 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
Enhancement pattern of the brain appears within normal limits. No venous sinuses appear patent.
No gross evidence for cerebellopontine angle mass.
Physical Exam
Vital Signs/Labs
Vital Signs
Temp Pulse Resp BP Pulse Ox
97.8 F 78 16 156/89 95
06/16/24 07:24 06/16/24 07:24 06/16/24 07:24 06/16/24 07:24 06/16/24 07:24
06/15/24 06/16/24 06/17/24
06:59 06:59 06:59
Actual Weight 74.9 kg
06/16/24 06:44
06/16/24 06:44
Magnesium 2.0 mg/dl (1.6-2.3) 06/14/24 11:19
TSH 1.89 uIU/ml (0.47-4.68) 06/14/24 11:20
Physical Exam
Constitutional: No acute distress
Cardiovascular: Rhythm & rate is regular, Pedal edema is absent, JVD pressure is normal, Systolic murmur absent and Diastolic murmur absent
Respiratory: Respiratory effort normal, Lungs clear to auscul., Wheeze Absent, Crackles Absent and Rhonchi Absent
Neuro/Psych: AO x 3
Data Reviewed
-
Date of Service: June 16, 2024
Medical Decision Making: Review of Case with other Provider (Dr Hdez continue current medications and I will sign off)
[2024-06-16 10:52] VITALS: BP 134/73
--- NOTE | 2024-06-16 11:31 | CM ---
Addendum entered by Sneha Balderrama 06/16/24 12:13:
[facility]
Report #: [phone]
Fax #: [phone]
Original Note:
Met with patient
discussed bed available tomorrow at [facility]
spoke with Marimar at [facility]
IMM explained & signed. In chart
PLAN: [facility] tomorrow
--- NOTE | 2024-06-16 12:49 | W.PN.HOSP.TC ---
Today's Communication/Plan
-
dc to SNF in 24 hours when bed available
Assessment / Plan
Assessment / Plan
Assessment:
BPPV
- ER eval with PT revealed + Torrance-Hallpike
- continue prn Meclizine, Compazine and Valium
- orthostatics negative
- MRI brain without central etiology
In hospital delirium
- prn Risperdal
- MRI: Moderate diffuse atrophy. 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
- findings could represent early dementia (both parents with dementia), recommended ongoing follow up with established Neurologist Dr. Brown
Chronic shuffling gait
- OP Neurology ongoing follow up with established Neurologist Dr. Brown
- PT/OT - for SNF
Paroxysmal Atrial Fibrillation
- s/p IV Cardizem drip
- now back on Verapamil and low dose Propranolol started
- continue Eliquis
- Echo: Normal biventricular size and systolic function without regional wall motion abnormality. Estimated LVFE 55-60%. Mild mitral stenosis. Mild aortic stenosis. Mildly dilated aortic root: SOV 4.0 cm.
- Cards following
Essential Hypertension
- Continue Cozaar with hold parameters
Hypothyroidism
- Continue Levothyroxine
Anxiety
- Continue Wellbutrin
Restless Leg Syndrome
- Continue Requip
GERD
- Continue Pepcid
Hx Breast Cancer s/p Right Lumpectomy
DVT ppx: Eliquis
Code: Full
Anticipated Discharge: Within 24 hours
Subjective/Interval History
-
Date of Service: June 16, 2024
resting comfortably, no complaints
Objective Data
-
Labs:
Laboratory Results
06/16/24
06:44
WBC 7.4
Hgb 12.9
Hct 38.3
Plt Count 231
Sodium 142
Potassium 4.1
Chloride 108 H
Carbon Dioxide 26
BUN 26 H
Creatinine 0.8
Glucose 93
Calcium 9.0
Vital Signs:
Vital Signs
Temp Pulse Resp BP Pulse Ox
97.6 F 82 16 134/73 96
06/16/24 10:52 06/16/24 10:52 06/16/24 10:52 06/16/24 10:52 06/16/24 10:52
I&O
06/15/24 06/16/24 06/17/24
06:59 06:59 06:59
Intake Total 180 / 180 180 / 180
Balance 180 / 180 180 / 180
Physical Exam
-
General: No Apparent Distress
HEENT: Normocephalic and Atraumatic
Respiratory: Negative Wheezes
Cardiac: Regular Rhythm and S1/S2
GI: Soft and Nontender
Musculoskeletal: No Edema
Neuro: AO x 3
Hematologic / Lymphatic: No Lymphadenopathy
Psych: Calm
Data Reviewed
-
Total Time Spent with Patient (in minutes): 42
Labs: Labs Reviewed by me
[2024-06-16 15:14] VITALS: BP 125/64
[2024-06-16] MEDS: COZAAR PO (18:03)
[2024-06-16 19:15] VITALS: BP 122/66
[2024-06-16] MEDS: REQUIP 0.5 MG PO (21:30)
[2024-06-16 23:40] VITALS: BP 152/92
[2024-06-17 03:20] VITALS: BP 137/86
[2024-06-17] MEDS: SYNTHROID 88 MCG PO (05:11)
[2024-06-17 07:05] VITALS: BP 157/89
[2024-06-17] MEDS: INDERAL 10 MG PO ×2 (09:08→12:35)
[2024-06-17] MEDS: MAG-TAB SR 84 MG PO (09:09)
[2024-06-17] MEDS: WELLBUTRIN SR (12 hour sustained release) 150 MG PO (09:09)
[2024-06-17] MEDS: CALAN EXTENDED RELEASE 180 MG PO (09:10)
[2024-06-17] MEDS: PEPCID 20 MG PO (09:10)
[2024-06-17] MEDS: NEURONTIN 100 MG PO (09:10)
[2024-06-17] MEDS: ELIQUIS 5 MG PO (09:12)
--- NOTE | 2024-06-17 10:50 | CM ---
Patient seen at bedside with
IMM signed yesterday
Discharge to [facility] today
PLAN: [facility]
Report #: [phone]
Fax #: [phone]
to transport
[2024-06-17 11:11] VITALS: BP 109/68
--- NOTE | 2024-06-17 11:27 | W.PN.HOSP.TC ---
Today's Communication/Plan
-
dc to SNF today
Assessment / Plan
Assessment / Plan
Assessment:
BPPV
- ER eval with PT revealed + Harry-Hallpike
- continue prn Meclizine, Compazine and Valium
- orthostatics negative
- MRI brain without central etiology
In hospital delirium
- prn Risperdal
- MRI: Moderate diffuse atrophy. 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
- findings could represent early dementia (both parents with dementia), recommended ongoing follow up with established Neurologist Dr. Brown
Chronic shuffling gait
- OP Neurology ongoing follow up with established Neurologist Dr. Brown
- PT/OT - for SNF
Paroxysmal Atrial Fibrillation
- s/p IV Cardizem drip
- now back on Verapamil. Propranolol QID also initiated
- continue Eliquis
- Echo: Normal biventricular size and systolic function without regional wall motion abnormality. Estimated LVFE 55-60%. Mild mitral stenosis. Mild aortic stenosis. Mildly dilated aortic root: SOV 4.0 cm.
- Cards following
Essential Hypertension
- Continue Cozaar with hold parameters
Hypothyroidism
- Continue Levothyroxine
Anxiety
- Continue Wellbutrin
Restless Leg Syndrome
- Continue Requip
GERD
- Continue Pepcid
Hx Breast Cancer s/p Right Lumpectomy
DVT ppx: Eliquis
Code: Full
More than 30 minutes spent in discharge including
Final examination of the patient
Summarizing hospital stay
Instructions for continuing care to all relevant caregivers
Preparation of discharge records, prescriptions, and referral forms
Total time spent (in minutes): 41
Anticipated Discharge: Today
Subjective/Interval History
-
Date of Service: June 17, 2024
no complaints
Objective Data
-
Vital Signs:
Vital Signs
Temp Pulse Resp BP Pulse Ox
97.9 F 90 16 109/68 95
06/17/24 11:11 06/17/24 11:11 06/17/24 11:11 06/17/24 11:11 06/17/24 11:11
I&O
06/16/24 06/17/24 06/18/24
06:59 06:59 06:59
Intake Total 180 / 180 420 / 420
Balance 180 / 180 420 / 420
Physical Exam
-
General: No Apparent Distress
HEENT: Normocephalic and Atraumatic
Respiratory: Negative Wheezes
Cardiac: Regular Rhythm, S1/S2 and Irregular Rhythm
GI: Soft
Musculoskeletal: No Edema
Neuro: AO x 3
Hematologic / Lymphatic: No Lymphadenopathy
Psych: Calm
Data Reviewed
-
Total Time Spent with Patient (in minutes): 41
Labs: Labs Reviewed by me
--- NOTE | 2024-06-17 11:31 | W.DS.TRANS ---
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
-
Discharge Instructions:
Sleep Apnea Risk Low
Discharge Diagnosis/Procedures benign vertigo, A. Fib
Diet Regular
Activity As tolerated
Other Services PT,OT
Instructions:
Stand-Alone Forms:
Changes to Home Medications: No
Discharge Medications:
DC Medications w/original date entered in [employer]
coenzyme Q10 100 mg capsule (CoQ-10) 100 mg PO DAILY Supplement 03/05/14
calcium 600 mg (as carbonate)-vit D3 20 mcg (800 unit) chewable tablet (Caltrate plus D) 1 tab PO DAILY Supplement 09/06/20
bupropion HCl 150 mg tablet,12 hr sustained-release (Wellbutrin SR) 150 mg PO DAILY depression/anxiety 04/17/21
acetaminophen 500 mg tablet 1,000 mg PO DAILYPRN PRN mild pain 06/14/24
apixaban 5 mg tablet (Eliquis) 5 mg PO BID Blood Clot Prevention/Tx 06/14/24
ascorbic acid (vitamin C) 500 mg tablet (Vitamin C) 500 mg PO DAILY Supplement 06/14/24
cholecalciferol (vitamin D3) 50 mcg (2,000 unit) tablet (Vitamin D3) 50 mcg PO DAILY Supplement 06/14/24
famotidine 20 mg tablet (Pepcid AC) 40 mg PO BID Gastrointestinal Issue 06/14/24
gabapentin 100 mg capsule 100 mg PO DAILY Pain 06/14/24
levothyroxine 88 mcg tablet 88 mcg PO DAILY Thyroid 06/14/24
losartan 50 mg tablet 50 mg PO QPM Blood Pressure 06/14/24
magnesium oxide 200 mg PO DAILY Supplement 06/14/24
omega 1-apa-myb-fish oil 1,000 mg (120 mg-180 mg) capsule (Fish Oil) 1 cap PO DAILY Supplement 06/14/24
polyethylene glycol 3350 17 gram oral powder packet 17 g PO DAILY laxative 06/14/24
polyvinyl alcohol 1.4 % eye drops (Artificial Tears (polyvinyl alcohol)) 1 drp ophthalmic (eye) DAILYPRN PRN dry eyes 06/14/24
psyllium 1 packet PO DAILY laxative 06/14/24
ropinirole 0.5 mg tablet 0.75 mg PO HSPRN PRN restless legs 06/14/24
therapeutic multivitamin 1 tab PO DAILY Supplement 06/14/24
verapamil 180 mg tablet,extended release 180 mg PO BID Heart Disease/BP 06/14/24
meclizine 25 mg tablet 25 mg PO Q8HPRN PRN vertigo #20 tabs 06/17/24
propranolol 10 mg tablet 10 mg PO QID #120 tabs 06/17/24
tramadol 50 mg tablet 50 mg PO DAILYPRN PRN moderate pain #10 tabs 06/17/24
Home Medication Changes
Pending Results: No
Total time spent discharging patient (in min): 41
[2024-06-17] MEDS: ANTIVERT 25 MG PO (12:35)
== END 2024-06-17 13:54 | DRG 149 ==
LOC: 3 WEST ACU 17:35
PROVIDERS: Physician Assistant Medical; Registered Nurse; ADMITTING PHYSICIAN Student in an Organized Health Care Education/Training Program; ATTENDING PHYSICIAN Internal Medicine; EMERGENCY PHYSICIAN Emergency Medicine; FAMILY PHYSICIAN Family Medicine; OTHER PHYSICIAN Internal Medicine
DX: H81.10 Benign paroxysmal vertigo, unspecified ear (principal); I47.20 Ventricular tachycardia, unspecified; I47.10 Supraventricular tachycardia, unspecified; R41.0 Disorientation, unspecified; I48.0 Paroxysmal atrial fibrillation; I10 Essential (primary) hypertension; E03.9 Hypothyroidism, unspecified; F41.9 Anxiety disorder, unspecified; G25.81 Restless legs syndrome; K21.9 Gastro-esophageal reflux disease without esophagitis; Z85.3 Personal history of malignant neoplasm of breast; Z79.01 Long term (current) use of anticoagulants; E78.5 Hyperlipidemia, unspecified; M19.90 Unspecified osteoarthritis, unspecified site; Z96.653 Presence of artificial knee joint, bilateral; Z87.891 Personal history of nicotine dependence; Z88.1 Allergy status to other antibiotic agents; Z88.0 Allergy status to penicillin; Z79.890 Hormone replacement therapy; Z79.899 Other long term (current) drug therapy; G14 Postpolio syndrome; H55.00 Unspecified nystagmus; Z86.73 Personal history of transient ischemic attack (TIA), and cerebral infarction without residual deficits; Z88.8 Allergy status to other drugs, medicaments and biological substances
CPT/HCPCS: 70553; 80048; 80053; 81003; 83735; 84443; 85027; 87070; 93005; 93306; 96374; 96375; 96376; 97112; 97116; 97167; 97530; 97535; 99285; A9575

== ENCOUNTER → 2024-07-07 10:19 | Outpatient (REF) | payer MEDICARE, OTHER, SELFPAY ==
[2024-07-07 10:42] LABS: % Basophils 0.4 % (0-2); % Eosinophils 3.6 % (0-6); % Immature Granulocytes 0.4 % (0-0.5); % Lymphocytes 28.7 % (20.5-51.1); % Monocytes 9.5 % (1.7-9.3); % Neutrophils 57.4 % (42.2-75.2); Absolute Eosinophils 0.3 10^3/uL (0-0.7); Absolute Lymphocytes 2.2 10^3/uL (1.2-3.4); Absolute Monocytes 0.7 10^3/uL (0.1-0.6); Absolute Neutrophils 4.3 10^3/uL (1.4-6.5); Hematocrit 37.7 % (37.0-47.0); Hemoglobin 12.7 g/dL (12.0-16.0); Mean Corp Hgb Conc. 33.7 g/dL (33.0-37.0); Mean Corpuscular Hgb 32.6 pg (27.0-31.0); Mean Corpuscular Volume 96.9 fL (81.0-99.0); Mean Platelet Volume 10.7 fL (7.4-10.4); Nucleated Red Blood Cells % 0 %; Platelet Count 233 10^3/uL (130-400); Red Blood Cell Count 3.89 10^6/uL (4.20-5.40); Red Cell Dist. Width 12.4 % (11.5-14.5); White Blood Cell Count 7.6 10^3/uL (4.8-10.8)
[2024-07-07 10:51] LABS: ALT (SGPT) 17 U/L (0-35); AST (SGOT) 17 U/L (14-36); Albumin 3.4 g/dl (3.5-5.0); Alkaline Phosphatase 63 U/L (38-126); Blood Urea Nitrogen 21 mg/dl (7-17); Calcium 9.2 mg/dl (8.4-10.2); Carbon Dioxide 28 mmol/L (22-30); Chloride 108 mmol/L (98-107); Glucose 85 mg/dl (70-99); Potassium 4.2 mmol/L (3.5-5.1); Sodium 143 mmol/L (135-145); Total Bilirubin 0.6 mg/dl (0.2-1.3); Total Protein 5.5 g/dl (6.3-8.2); eGFR > 60.00
[2024-07-07 11:21] LABS: TSH Reflex To Free T4 0.54 uIU/ml (0.47-4.68)
[2024-07-07 11:57] LABS: Folate > 20.0 ng/ml (2.76-20); Vitamin B12 956 pg/ml (239-931)
[2024-07-07 11:58] LABS: Glycohemoglobin (HgbA1c) 5.8 % (4.0-5.6)
== END ==
LOC: OLABPV 10:19
PROVIDERS: ATTENDING PHYSICIAN Family Medicine
DX: I48.91 Unspecified atrial fibrillation (principal); F41.1 Generalized anxiety disorder; F32.0 Major depressive disorder, single episode, mild; G47.61 Periodic limb movement disorder; Z79.899 Other long term (current) drug therapy; R79.89 Other specified abnormal findings of blood chemistry; R73.09 Other abnormal glucose; D75.89 Other specified diseases of blood and blood-forming organs
CPT/HCPCS: 36415; 80053; 82607; 82746; 83036; 84443; 85025

== ENCOUNTER → 2024-07-14 10:59 | Outpatient (REF) | payer MEDICARE, OTHER, SELFPAY ==
[2024-07-14 11:56] LABS: Calcium 8.8 mg/dl (8.4-10.2); Vitamin D, 25-OH*** 51.2 ng/mL (30-80)
[2024-07-15 12:10] LABS: tTG IgA Antibody 7.4 EU/ml (0-19)
[2024-07-15 15:09] LABS: Intact PTH 31.8 pg/ml (13.6-85.8)
[2024-07-15 23:54] LABS: IgA 136 mg/dl (70-400)
[2024-07-16 12:41] LABS: Chromogranin A 272 ng/mL (0-187)
[2024-07-16 17:46] LABS: Endomysial IgA Antibody Titer <1:10 (<1:10)
== END ==
LOC: OLABPV 10:59
PROVIDERS: ATTENDING PHYSICIAN Internal Medicine; FAMILY PHYSICIAN Registered Nurse
DX: R79.9 Abnormal finding of blood chemistry, unspecified (principal); R53.82 Chronic fatigue, unspecified; Z79.899 Other long term (current) drug therapy
CPT/HCPCS: 36415; 82306; 82784; 83516; 83970; 86231; 86235; 86316

== ENCOUNTER → 2024-07-21 11:18 | Outpatient (REF) | payer MEDICARE, OTHER, SELFPAY ==
[2024-07-21 15:39] LABS: Cortisol, Random 17.5 ug/dl
[2024-07-22 21:28] LABS: Adrenocorticotropic Hormone 41.2 pg/mL (7.2-63.3)
== END ==
LOC: OLABPV 11:18
PROVIDERS: ATTENDING PHYSICIAN Nurse Practitioner Family
DX: R53.82 Chronic fatigue, unspecified (principal)
CPT/HCPCS: 36415; 82024; 82533

== ENCOUNTER → 2024-07-23 08:55 | Outpatient (REF) | payer MEDICARE, OTHER, SELFPAY | LOC: REG 08:55 | PROVIDERS: Internal Medicine Endocrinology, Diabetes & Metabolism; ATTENDING PHYSICIAN Internal Medicine; FAMILY PHYSICIAN Family Medicine | DX: R53.82 Chronic fatigue, unspecified (principal) | CPT/HCPCS: 81050; 82530 ==

== ENCOUNTER → 2024-08-21 10:13 | Outpatient (REF) | payer MEDICARE, OTHER, SELFPAY ==
[2024-08-21 12:38] LABS: Glycohemoglobin (HgbA1c) 5.6 % (4.0-5.6)
[2024-08-21 13:41] LABS: ALT (SGPT) 21 U/L (0-35); AST (SGOT) 18 U/L (14-36); Albumin 3.7 g/dl (3.5-5.0); Alkaline Phosphatase 57 U/L (38-126); Blood Urea Nitrogen 29 mg/dl (7-17); Calcium 9.1 mg/dl (8.4-10.2); Carbon Dioxide 23 mmol/L (22-30); Chloride 112 mmol/L (98-107); Glucose 111 mg/dl (70-99); Potassium 4.5 mmol/L (3.5-5.1); Sodium 141 mmol/L (135-145); Total Bilirubin 0.5 mg/dl (0.2-1.3); Total Protein 5.9 g/dl (6.3-8.2); eGFR > 60.00
[2024-08-21 16:46] LABS: Vitamin B12 743 pg/ml (239-931)
[2024-08-21 18:01] LABS: Folate > 20.0 ng/ml (2.76-20)
== END ==
LOC: OLABPV 10:13
PROVIDERS: ATTENDING PHYSICIAN Family Medicine
DX: Z79.899 Other long term (current) drug therapy (principal); R73.09 Other abnormal glucose; D75.89 Other specified diseases of blood and blood-forming organs; R53.1 Weakness; R42 Dizziness and giddiness
CPT/HCPCS: 36415; 80053; 82607; 82746; 83036

== ENCOUNTER 2024-09-02 12:00 | Outpatient (RCR) | payer MEDICARE, OTHER, SELFPAY | END 2024-09-02 23:59 | disposition home or self-care (01) | LOC: RPT 12:00 | PROVIDERS: ATTENDING PHYSICIAN Family Medicine | DX: H81.10 Benign paroxysmal vertigo, unspecified ear (principal); Z73.6 Limitation of activities due to disability | CPT/HCPCS: 97112; 97162 ==

== ENCOUNTER → 2024-09-22 14:03 | Outpatient (REF) | payer MEDICARE, OTHER, SELFPAY | LOC: RAD 14:03 | PROVIDERS: ATTENDING PHYSICIAN Family Medicine | DX: S09.90XA Unspecified injury of head, initial encounter (principal); Z79.01 Long term (current) use of anticoagulants; M25.521 Pain in right elbow; M53.3 Sacrococcygeal disorders, not elsewhere classified | CPT/HCPCS: 70450; 72220; 73080 ==

== ENCOUNTER → 2024-09-29 11:42 | Outpatient (REF) | payer MEDICARE, OTHER, SELFPAY ==
[2024-09-29 12:32] LABS: LDH 209 U/L (120-246)
[2024-09-29 12:52] LABS: C-Reactive Protein < 5.00 mg/L (0.0-10.00)
== END ==
LOC: OLABPV 11:42
PROVIDERS: ATTENDING PHYSICIAN Internal Medicine
DX: M62.81 Muscle weakness (generalized) (principal); R53.1 Weakness; R53.82 Chronic fatigue, unspecified
CPT/HCPCS: 36415; 82085; 82550; 83615; 85652; 86140

== ENCOUNTER 2024-11-04 09:37 | Emergency (ER) | payer MEDICARE, OTHER, SELFPAY ==
[2024-11-04 09:39] VITALS: BP 141/77
--- NOTE | 2024-11-04 10:37 | ED.GENMED ---
History of Present Illness
General
Chief Complaint: DVT/Possible Blood Clot
Source: patient and spouse
Time Seen by Provider: 11/04/24 09:41
History of Present Illness
History of Present Illness:
Patient with nontraumatic pain and swelling to the right leg over about 10 days. On Eliquis. Faithful. No fever or chills. No systemic symptoms.
Past History
Past History
ED Past Medical History: Cancer (Breast cancer), GERD, HTN and Other (Hyperparathyroidism, headaches, dizziness)
ED Past Surgical History: Gynecological (Mastectomy.), Orthopedic and Other (Port placement; parathyroidectomy June 2018)
Social History
Tobacco: Non-smoker
Alcohol: None
Personal:
Living: with family
Employment: Retired
Family History
Family History: Other (Noncontributory)
Review of Systems
Review of Systems
All Other Systems: Not applicable
Constitutional: Denies fever or chills
Respiratory: Reports no symptoms
Cardiac: Reports no symptoms
Phy Exam
Physical Exam
Physical Exam:
GENERAL: Alert and oriented in no apparent distress
CARDIAC: Regular rate and rhythm
LUNGS: No respiratory distress
NEUROLOGICAL: Alert and oriented , grossly non-focal
SKIN: Warm and dry, minimal erythematous hue to the right lower extremity with mild warmth
MUSCULOSKELETAL: Chronic edema both legs with somewhat increased edema right lower extremity. Good distal pulses and color. Well-healed scar to the right lower extremity at the knee
PSYCH: Normal and appropriate interaction.
Course
Orders/Labs/Results
Orders:
Orders
11/04/24 09:39
US Periph Venous LOWER Ext RT Urgent
Comment:
Reason For Exam: swelling
11/04/24 10:35
Tib/Fib, Right 2 View [CR Leg Tibia/fibula Right 2 Vw] Urgent
Comment:
Reason For Exam: pain
11/04/24 10:36
Doxycycline [Vibramycin] 100 mg PO NOW STA
Vital Signs
Initial and Last Documented VS:
Initial Vital Signs
Temp Pulse Resp BP Pulse Ox
97.8 F 67 18 141/77 98
11/04/24 09:39 11/04/24 09:39 11/04/24 09:39 11/04/24 09:39 11/04/24 09:39
Last Documented Vital Signs
Temp Pulse Resp BP Pulse Ox
97.8 F 75 20 149/68 97
11/04/24 09:39 11/04/24 10:59 11/04/24 10:59 11/04/24 10:59 11/04/24 10:59
*Radiology
Radiology exam reviewed: preliminary read by ED provider (Negative x-ray) and radiology read reviewed (Negative ultrasound)
*Pulse Oximetry
SaO2: 98
Oxygen Mode of Delivery: Room air
Patient hypoxic: no
*Critical Care Note
Total Time (30-74mins, 75-104mins- exclusive of procedures): Not Applicable
ED Attending Note
-
Portions of this chart may have been created with voice recognition software.� Occasional wrong word or��sound alike� substitutions may have occurred due to the inherent limitations of voice recognition software.
Discharge Plan
Departure
Patient Disposition: Home (Routine Discharge)
Date of Disposition: 11/04/24
Time of Disposition: 10:49
Patient with high blood pressure during this ER visit?: Yes
Discharge Problem:
Swelling erythema right lower extremity, Possible cellulitis
Instructions: BLOOD PRESSURE
Prescriptions:
New
doxycycline hyclate 100 mg capsule
100 mg PO BID 10 Days Qty: 20 0RF
No Action
coenzyme Q10 [CoQ-10] 100 MG capsule
100 mg PO DAILY
Caltrate 600 plus D 1 EACH tablet,chewable
1 tab PO DAILY
bupropion HCl [Wellbutrin SR] 150 MG tablet sustained-release 12 hr
150 mg PO DAILY
polyethylene glycol 3350 17 gram Powder In Packet
17 g PO DAILY
polyvinyl alcohol [Artificial Tears (polyvin alc)] 1.4 % Drops
1 drp OPHTHALMIC (EYE) DAILYPRN PRN (Reason: dry eyes)
psyllium Packet
1 packet PO DAILY
acetaminophen 500 mg Tablet
1,000 mg PO DAILYPRN PRN (Reason: mild pain)
famotidine [Pepcid AC] 20 mg Tablet
40 mg PO BID
therapeutic multivitamin Tablet
1 tab PO DAILY
losartan 50 mg Tablet
50 mg PO QPM
verapamil 180 mg Tablet Extended Release
180 mg PO BID
levothyroxine 88 mcg Tablet
88 mcg PO DAILY
ascorbic acid (vitamin C) [Vitamin C] 500 mg Tablet
500 mg PO DAILY
ropinirole 0.5 mg Tablet
0.75 mg PO HSPRN PRN (Reason: restless legs)
gabapentin 100 mg Capsule
100 mg PO DAILY
cholecalciferol (vitamin D3) [Vitamin D3] 50 mcg (2,000 unit) Tablet
50 mcg PO DAILY
omega 6-qce-ynx-fish oil [Fish Oil] 1,000 (120-180) mg Capsule
1 cap PO DAILY
Eliquis 5 mg Tablet
5 mg PO BID
magnesium oxide 200 mg magnesium Tablet
200 mg PO DAILY
propranolol 10 mg Tablet
10 mg PO QID Qty: 120 0RF
meclizine 25 mg Tablet
25 mg PO Q8HPRN PRN (Reason: vertigo) Qty: 20 0RF
tramadol 50 mg Tablet
50 mg PO DAILYPRN PRN (Reason: moderate pain) Qty: 10 0RF
Referrals:
Sonal Grimm MD [Family Provider, Family Practice] - Follow up in 2-3 days
Activity Restrictions/Additional Instructions:
Take antibiotics as directed
Elevate and rest leg
Follow-up closely with your primary physician
The prescription was sent to your pharmacy
Recheck with increased swelling increased pain fever redness or if symptoms are not improving in 2 to 3 days
Interventions
Interventions:
*Risk Screen - Suicide Last Done: 11/04/24 09:39
*General Assessment Last Done: 11/04/24 09:39
*Neglect/Abuse Screening Last Done: 11/04/24 09:39
*ED- Fall Risk Assessment Last Done: 11/04/24 10:59
*ED COVID-19 Vaccine History Last Done: 11/04/24 10:59
*Nursing Disposition Last Done: 11/04/24 11:01
ED- Cardiac Assessment Last Done: 11/04/24 10:59
ED- Pulmonary Assessment Last Done: 11/04/24 10:59
ED-Peripheral Vascular Assessment Last Done: 11/04/24 10:59
ED-Skin Assessment Last Done: 11/04/24 10:59
Discharge Date and Time
Discharge Date/Time: 11/04/24 11:02
Print Language: SERBIAN
[2024-11-04] MEDS: VIBRAMYCIN 100 MG PO (10:52)
[2024-11-04 10:59] VITALS: BP 149/68
== END 2024-11-04 11:02 | disposition home or self-care (01) ==
LOC: EMR 09:37
PROVIDERS: EMERGENCY PHYSICIAN Emergency Medicine; FAMILY PHYSICIAN Family Medicine
DX: R22.41 Localized swelling, mass and lump, right lower limb (principal); I10 Essential (primary) hypertension; K21.9 Gastro-esophageal reflux disease without esophagitis; Z79.01 Long term (current) use of anticoagulants; Z85.3 Personal history of malignant neoplasm of breast
CPT/HCPCS: 99284; 73590; 93971

== ENCOUNTER → 2024-12-15 11:10 | Outpatient (REF) | payer MEDICARE, OTHER, SELFPAY ==
[2024-12-15 12:57] LABS: Hematocrit 38.6 % (37.0-47.0); Hemoglobin 12.6 g/dL (12.0-16.0); Mean Corp Hgb Conc. 32.6 g/dL (33.0-37.0); Mean Corpuscular Volume 95.1 fL (81.0-99.0); Nucleated Red Blood Cells % 0 %; Platelet Count 211 10^3/uL (130-400); Red Cell Dist. Width 12.8 % (11.5-14.5)
[2024-12-15 13:13] LABS: ALT (SGPT) 25 U/L (0-35); AST (SGOT) 22 U/L (14-36); Albumin 3.7 g/dl (3.5-5.0); Alkaline Phosphatase 61 U/L (38-126); Blood Urea Nitrogen 28 mg/dl (7-17); Calcium 8.8 mg/dl (8.4-10.2); Carbon Dioxide 26 mmol/L (22-30); Chloride 108 mmol/L (98-107); Glucose 93 mg/dl (70-99); Potassium 4.3 mmol/L (3.5-5.1); Sodium 140 mmol/L (135-145); Total Protein 6.1 g/dl (6.3-8.2); eGFR > 60.00
== END ==
LOC: OLABPV 11:10
PROVIDERS: ATTENDING PHYSICIAN Family Medicine
DX: I48.91 Unspecified atrial fibrillation (principal); F41.1 Generalized anxiety disorder; F32.0 Major depressive disorder, single episode, mild; E78.00 Pure hypercholesterolemia, unspecified; I70.0 Atherosclerosis of aorta; E44.1 Mild protein-calorie malnutrition; D75.89 Other specified diseases of blood and blood-forming organs; E03.9 Hypothyroidism, unspecified
CPT/HCPCS: 36415; 80053; 84443; 85025

== ENCOUNTER → 2025-01-18 14:22 | Outpatient (REF) | payer MEDICARE, OTHER, SELFPAY | LOC: WDC 14:22 | PROVIDERS: ATTENDING PHYSICIAN Family Medicine | DX: Z12.31 Encounter for screening mammogram for malignant neoplasm of breast (principal) | CPT/HCPCS: 77063; 77067 ==